=== PATIENT | female | born 1985 | race African-American/Black ===

== ENCOUNTER 2016-09-02 17:53 | Emergency (ER) | payer SELFPAY ==
[2016-09-02 18:08] VITALS: BP 115/56
--- NOTE | 2016-09-02 18:58 | ERNOTE ---
ER Female HPI Date of Service: 09/02/16 Stated Complaint: SPOTTING POSS Presenting Symptoms: vaginal bleeding, other - positive test Time Seen by Provider: 09/02/16 18:47 Source: patient, RN notes reviewed, past records Exam Limitations: no limitations Immunizations: IMMUNIZATION HX Immunizations Up to Date Yes History of Influenza Vaccine No Hx Pneumococcal Vaccination No Allergies/Adverse Reactions: Allergies No Known Allergies Allergy (Verified 09/02/16 18:08) Home Medications: HOME MEDICATIONS NK [No Home Medication] 09/02/16 [Last Taken Unknown] Pain Score #1 Pain Score: 0 - History of Present Illness Narrative: 30 year old female ambulatory to the ED for vaginal bleeding and possible . She reports having a small amount of pinkish red discharge on the toilet tissue when she wiped at one point yesterday. She has not had any bleeding since. She took a home test today and it was positive. She is not having any pain. Review of Systems - Review of Systems Constitutional: Absent: fever, malaise EYE: Present: no symptoms reported ENT: Present: no symptoms reported Respiratory: Present: no symptoms reported Cardiology: Present: no symptoms reported Gastrointestinal/Abdominal: Absent: nausea, vomiting, abdominal pain Genitourinary: Absent: frequency, dysuria, hematuria Musculoskeletal: Absent: back pain, muscle pain Skin: Absent: rash, lesions, lumps Neurological: Absent: headache, dizziness/light-headedness Endocrine: Present: no symptoms reported Hematologic/Lymphatic: Absent: easy bruising, easy bleeding Psych: Present: no symptoms reported - Patient's Past Medical History Patient History - Medical: No pertinent hx Patient History - Cardiac/Respiratory: No pertinent hx Patient History - Cancer: No Hx of Cancer Patient History - Surgical Procedures: Patient History - Other: None LMP (Calendar): 07/27/16 - Family History Father Family History - Medical: No pertinent hx, History Unknown Family History - Cardiac/Respiratory: No pertinent hx Mother Family History - Medical: History Unknown - Social History Living Situations: home Abuse History: No History of abuse Psych History: No pertinent hx Smoking Status: Never smoker Patient requests Smoking Cessation Consult: No Initiate information on Smoking Cessation: No Alcohol Use: none Drug Use: none - Immunizations Immunizations Up to Date: Yes Hx Pneumococcal Vaccination: No History of Influenza Vaccine: No Physical Exam - Physical Exam General Appearance: Present: wd/wn, alert, no apparent distress Respiratory: Present: no respiratory distress, normal breath sounds, no accessory muscle use, lungs clear Cardiovascular/Chest: Present: regular rate, rhythm, no murmur Gastrointestinal/Abdominal: Present: normal bowel sounds, nontender, soft, distended - obese Neurological Exam: Present: alert, oriented, normal mood/affect Skin Exam: Present: normal color, warm/dry ED Progress - Vital Signs Patient's Vital Signs:: I have reviewed the patient's vital signs. Vital Signs: Vital Signs 09/02/16 18:04 Temperature 37 C Pulse Rate 84 Respiratory 18 Rate Blood Pressure 115/56 O2 Sat by Pulse 100 Oximetry - Progress/Reassessment Chief Complaint: Genitourinary Problem Progress:: Unchanged Plan - Plan Plan: Patient with a positive home test, no pain and a small amount of vaginal bleeding yesterday, wishes to have another test done here, informed that this is not necessary as a positive home test indicates that she is . To contact her OB to initiate care. Discussed indications for needing to return to the ED. Departure Clinical Impression: Positive home test, First trimester bleeding - Departure Disposition: Home Follow Up Needed Condition: Stable Instructions: First Trimester of , [id number] Additional Instructions: [facility] a [facility] Referrals: Joe Romero DO [Staff Physician] -
== END 2016-09-02 19:05 | disposition home or self-care (01) ==
LOC: ER 17:53
DX: O20.9 Hemorrhage in early pregnancy, unspecified (principal); Z3A.00 Weeks of gestation of pregnancy not specified